=== PATIENT | male | born 1970 | race Caucasian/White ===

== ENCOUNTER 2021-09-09 07:57 | Emergency (ER) | payer BC ==
[~2021-09-09] VITALS: Ht 182.9 cm; Wt 137.3 kg
[2021-09-09] MEDS ORDERED: PREDNISONE20 MG PO (08:32)
== END 2021-09-09 08:47 | disposition home or self-care (01) ==
LOC: ED 07:57
DX: M10.9 Gout, unspecified (principal)
CPT/HCPCS: 99283